=== PATIENT | female | born 1955 | race Caucasian/White ===

== ENCOUNTER 2017-03-03 15:08 | Emergency (ER) | payer BC, OTHER ==
[~2017-03-03] VITALS: Ht 167.6 cm; Wt 111.1 kg
[2017-03-03 15:08] VITALS: TEMP 36.8; Ht 167.6 cm; Wt 111.1 kg
[~2017-03-03 15:08] MED LIST: DULO60CA44 PO; LSN/20125 PO; NRV/10 PO; ULT/50 PO
[2017-03-03] MEDS ORDERED: METOCLOPRAMIDE HCL INJ 5 MG/ML 2 ML VIAL IV STA (15:22)
[2017-03-03] MEDS ORDERED: SODIUM CHLORIDE 0.9% 1000ML 1,000 ML IV STA (15:22)
[2017-03-03] MEDS ORDERED: DiphenhydrAMINE HCL 50 MG/ML VIAL IV STA (15:22)
[2017-03-03] MEDS ORDERED: ACETAMINOPHEN IV 100 ML IV STA (15:22)
--- NOTE | 2017-03-03 15:32 | EMERGENCY ROOM VISIT NOTE ---
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 Cervical spine radiographs 08/24/2013. TECHNIQUE: Multiple axial CT images of the cervical spine were obtained without contrast. A dose lowering technique was utilized adhering to the principles of ALARA. FINDINGS: No acute cervical spine fracture or subluxation identified. Moderate intervertebral disc space narrowing noted at C4-C5, C5-C6 and C6-C7 with moderate endplate spurring and posterior disc osteophyte complex formation. Mild to moderate multilevel facet arthropathy, most pronounced at C7-T1 and T1-T2. Nonspecific focal area of sclerosis involves the right facet at C3. No definite high-grade central canal narrowing. Severe right-sided foraminal narrowing noted at C5-C6. Imaged lung apices appear clear. Partially calcific nodule the right thyroid measures up to 1.3 cm. There are large bilateral mastoid effusions which are nearly completely opacified. Fluid within the bilateral middle ear cavities also noted. Mild mucoperiosteal thickening of the maxillary sinuses. IMPRESSION: 1. No acute cervical spine fracture or subluxation. 2. Moderate intervertebral disc space narrowing with endplate spurring and mild facet arthropathy at C4-C5 through C6-C7. 3. Large bilateral mastoid effusions with fluid also noted within the bilateral middle ear cavities. 4. Partially calcified right thyroid nodule, 1.3 cm. Problem Qualifiers
[2017-03-03] MEDS ORDERED: AMLO-110 PO (15:35)
[2017-03-03] MEDS ORDERED: METO100T14 PO (15:35)
[2017-03-03] MEDS ORDERED: MULT-506 PO (15:36)
[2017-03-03] MEDS ORDERED: OPTIRAY 320 IV PRN (15:45)
[2017-03-03 15:46] LABS: BASO % 0.3 %; BASO ABS # 0.03 K/uL (0-0.2); COMPLETE YES; EOS % 4.8 %; HEMATOCRIT 43.8 % (37-47); IG% 0.2 %; LYMPH % 23.8 %; LYMPH ABS # 2.45 K/uL (1.2-3.4); MEAN CELL VOLUME 83.9 fL (80-100); MEAN CORPUSCULAR HEMOGLOBIN 28.5 pg (25-34); MEAN PLATELET VOLUME 10.1 fL (7.4-10.4); MONO % 7.4 %; NEUT % 63.5 %; PLATELET COUNT 265 K/uL (130-400); RED BLOOD COUNT 5.22 M/uL (4.2-5.4)
[2017-03-03 16:04] LABS: ALT/SGPT 21 U/L (12-78); AST/SGOT 10 U/L (15-37); BLOOD UREA NITROGEN 15 mg/dl (7-18); BUN/CREATININE RATIO 21.8 (10-20); CALCIUM 8.9 mg/dl (8.5-10.1); CARBON DIOXIDE 29 mmol/L (21-32); CHLORIDE 105 mmol/L (98-107); GLUCOSE 98 mg/dl (70-99); POTASSIUM 3.5 mmol/L (3.5-5.1); SODIUM 139 mmol/L (136-145)
[2017-03-03 16:07] LABS: ALKALINE PHOSPHATASE 69 U/L (45-117)
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
[2017-03-03 17:01] VITALS: BP 120/60; PULSE 61; O2SAT 98
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
== END 2017-03-03 18:18 | disposition home or self-care (01) ==
LOC: EDBD 15:08 → C.EDC 15:13
DX: S39.012A Strain of muscle, fascia and tendon of lower back, initial encounter (principal); R51 Headache; V43.52XA Car driver injured in collision with other type car in traffic accident, initial encounter; Y92.410 Unspecified street and highway as the place of occurrence of the external cause; Z79.899 Other long term (current) drug therapy

== ENCOUNTER 2017-03-09 12:35 | Emergency (ER) | payer OTHER ==
[~2017-03-09] VITALS: Ht 165.1 cm; Wt 105.9 kg
[~2017-03-09 12:35] MED LIST changes: +AMLO-110 PO; +METO100T14 PO; +MULT-506 PO
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
[2017-03-09] MEDS ORDERED: KETOROLAC TROMETHAMINE 60 MG/2 ML VIAL IM STA (12:53)
[2017-03-09] MEDS ORDERED: ONDANSETRON 4MG OD TAB PO STA (12:53)
[2017-03-09] MEDS ORDERED: DEXAMETHASONE **PF** INJ 10 MG/ML VIAL PO STA (12:53)
[2017-03-09] MEDS ORDERED: ACETAMINOPHEN 500 MG TAB PO STA (12:53)
[2017-03-09 12:55] VITALS: Ht 165.1 cm; Wt 105.9 kg
[2017-03-09] MEDS ORDERED: FAMOTIDINE 20 MG TAB PO ONE (13:00)
[2017-03-09] MEDS ORDERED: DIAZEPAM 5MG TAB PO ONE (13:00)
--- NOTE | 2017-03-09 13:45 | DIAGNOSTIC IMAGING REPORT ---
PA CHEST WITH LEFT-SIDED RIB SERIES CLINICAL HISTORY: Left-sided chest wall pain. FINDINGS: A PA chest radiograph with 4 additional views may left-sided rib series is compared to study dated 03/03/2017. The cardiomediastinal silhouette is unremarkable. There are low lung volumes with bibasilar atelectasis. No large pleural effusion or pneumothorax is seen. The skeletal structures are osteopenic. There is a nonobstructed left posterior 10th rib fracture. No additional left-sided rib fracture is seen on the rib series. The remainder of the bony thorax is grossly intact. IMPRESSION: 1. Low lung volumes with no acute cardiopulmonary abnormality. 2. There is a nondistracted left posterior 10th rib fracture. Electronically signed by: Ricardo Farmer M.D. 03/09/2017 1:44 PM Dictated Date/Time: 03/09/2017 1:40 PM
--- NOTE | 2017-03-09 13:46 | DIAGNOSTIC IMAGING REPORT ---
LUMBAR SPINE 3 VIEWS HISTORY: Low back pain COMPARISON: Lumbar spine 08/24/2013. FINDINGS: There is no fracture. Mild dextroscoliosis of the lumbar spine, unchanged. No subluxation. Moderate facet osteoarthritis throughout the lumbar spine. The sacrum is intact. Moderate degenerative disc disease throughout the lumbar spine. This is demonstrated by disc space narrowing and endplate osteophytes. IMPRESSION: 1. No fractures within the lumbar spine. 2. Moderate degenerative changes throughout the lumbar spine. 3. Dextroscoliosis, unchanged. Electronically signed by: Osman Carter M.D. 03/09/2017 1:45 PM Dictated Date/Time: 03/09/2017 1:43 PM
[2017-03-09] MEDS ORDERED: OXYCODONE HCL IR 5 MG TAB (IMMEDIATE RELEASE) PO STA (14:34)
[2017-03-09] MEDS ORDERED: TRAMADOL HCL 50 MG TAB PO STA (14:34)
[2017-03-09] MEDS ORDERED: METH4PAK PO (15:11)
[2017-03-09] MEDS ORDERED: NXM/40 PO (15:11)
[2017-03-09 15:29] VITALS: BP 139/70; PULSE 78; O2SAT 98
== END 2017-03-09 15:31 | disposition home or self-care (01) ==
LOC: EDBD 12:35 → C.EDA 12:37
DX: M54.5 Low back pain (principal); R07.81 Pleurodynia; R07.9 Chest pain, unspecified; G89.29 Other chronic pain; R10.9 Unspecified abdominal pain; R11.0 Nausea; Z79.899 Other long term (current) drug therapy